=== PATIENT | female | born 1965 | race Caucasian/White ===

== ENCOUNTER 2023-12-31 20:56 | Observation (INO) ==
--- NOTE | 2023-12-31 21:20 | DR.EXTPAIN ---
HPI Time seen Time Seen by Provider: 12/31/23 21:20 PCP Primary Care Physician: ONEIL ISSA HPI Comment HPI Comment: According to pt she was well before at least 1 week ago.started with dysuria and vaginal itching .was noted to have vaginal candidiasis and acute cystitis .Given antibiotcis and diflucan.Furthermore pt noticed gradual increase in her blood sugar to be over 500.Pt called her FP to talk with her .She was noted to be drowsy . Was advised to come to ER .EMS called pateints blood sugar over 500 brought to Er for evaluation and management Complaint/Symptoms Chief Complaint Doctor Comments: feeling tired Chief Complaint:: PT IN ED VIA STRETCHER PER [facility] WITH C/O EXTREME WEAKNESS. PT STATES ON TUESDAY SHE STARTED URINATING BLOOD CLOTS AND HAVING FE BREEZY. SAW PRIMARY CARE ON TUESDAY DX WITH UTI AND STARTED ON ANTIBIOTICS. STATES TUESDAY SHE WAS VERY WEAK, FELL HIT HEAD AND LEFT SHOULDER. STATES TODAY SHE IS SO WEAK SHE CAN'T STAND. COVID-19 Coronavirus risk:travel/contact w/high risk person: No Has patient experienced Coronavirus symptoms: No Nurses notes reviewed Nurses Notes Review: Yes Source History Provided: Patient and EMS Mode of arrival Mode of Arrival: Stretcher Timing Onset of Chief Complaint: 12/29/23 Context History of: None Associated signs and symptoms Associated Signs and Symptoms: Nausea PMH PMH Past Medical History: Yes Past Medical History: Arthritis, Coronary Artery Disease, Depression, Diabetes, Dyslipidemia, GERD, Gout, Hypertension and Hypothyroidism Past Medical History Comment: NEUROPATHY Past Surgical History: Yes Surgical History: Abdominal Surgery, Angioplasty/Stents, Appendectomy, C- Section, Cholecystectomy and Hysterectomy Past Surgical History Comment: HERNIA REPAIR LYMPECTOMY Family History History of Family Medical Conditions: Yes Family Medical History: Diabetes Mellitus, Cancer, [place], Coronary Artery Disease, Heart Failure, Sudden Cardiac and Hypertension Social History Does patient currently use any type of tobacco product: No Have you used tobacco products in the last 12 months: No Type of Tobacco Use: None Does any household member use tobacco: No Alcohol Use: None Do you use any recreational Drugs:: No Lives With: Family Lives Where: Home Travel Risk Coronavirus risk:travel/contact w/high risk person: No Has patient experienced Coronavirus symptoms: No Infectious screening In the last 2 months have you had wt loss of >10#?: NO Have you had fever, night sweats or hemotysis?: No Have you traveled outside the country in the last 6 months?: No Isolation: Standard ROS Review of Systems Constitutional: Malaise and Fatigue Eyes: No Symptoms Reported ENTM: No Symptoms Reported Respiratoy: No Symptoms Reported Cardiovascular: Other (chest pressure ) Gastrointestinal/Abdominal: Nausea Genitourinary: Frequency and Other (polyuria and polydipsia ) Neurological: Weakness Musculoskeletal: No Symptoms Reported Integumentary: No Symptoms Reported Hematologic/Lymphatic: No Symptoms Reported Endocrine: No Symptoms Reported Psychiatric: No Symptoms Reported PE Vital Signs Vitals: Vital Signs Temperature 98.1 F Pulse Rate 99 Pulse Rate 100 Pulse Rate 100 Pulse Rate 102 Pulse Rate 106 Pulse Rate 105 Pulse Rate 106 Pulse Rate 110 Respiratory Rate 19 Respiratory Rate 19 Respiratory Rate 16 Respiratory Rate 21 Respiratory Rate 19 Respiratory Rate 14 Respiratory Rate 13 Respiratory Rate 20 Respiratory Rate 20 Blood Pressure 208/79 Blood Pressure 197/79 Blood Pressure 200/91 O2 Sat by Pulse Oximetry 98 O2 Sat by Pulse Oximetry 98 O2 Sat by Pulse Oximetry 97 O2 Sat by Pulse Oximetry 99 O2 Sat by Pulse Oximetry 97 O2 Sat by Pulse Oximetry 96 O2 Sat by Pulse Oximetry 97 General Limitations: No Limitations General Appearance: Lethargic Head Head Exam: Normal Inspection, Atraumatic and Normocephalic Eyes Eye exam: Normal Appearance, PERRL and EOMI ENT ENT Exam: Normal Exam and Mucous Membranes Dry Neck Neck Exam: Normal Inspection and Full ROM Chest Chest Inspection: Normal Inspection and Symmetric Chest Wall Rise Respiratory Respiratory Exam: Normal Lung Sounds Bilat Respiratory Exam: Bilateral: Clear to Auscultation Cardiovascular Cardiovascular Exam: Tachycardia, +S1 and +S2 Abdominal Exam Abdominal Exam: Normal Inspection, Normal Bowel Sounds and Soft Extremities Extremities Exam: Normal Inspection and Full ROM Upper Extremities Shoulder Exam: Normal Inspection and Full ROM Skin Skin Exam: Warm MDM Differential Diagnosis Differential Diagnosis: Other (hyperglycemia ,hx of DM type2,dehydration ,chest pressure ,nausea ) COURSE Treatment Treatment: labs ,IV fluids Reevaluation 1st: Improved ROR Labs Reviewed Laboratory Results Reviewed?: Yes 12/31/23 21:16 12/31/23 21:16 Laboratory: WBC 8.5 X10^3/uL (3.6-10.0) 12/31/23 21:16 RBC 5.99 X10^6/uL (3.5-5.4) H 12/31/23 21:16 Hgb 13.6 g/dL (12.0-16.0) 12/31/23 21:16 Hct 42.0 % (36.0-47.0) 12/31/23 21:16 MCV 70.2 fL (80.0-100.0) L 12/31/23 21:16 MCH 22.7 pg (27.0-34.0) L 12/31/23 21:16 MCHC 32.3 g/dL (33.0-35.0) L 12/31/23 21:16 RDW 17.5 % (11.6-16.5) H 12/31/23 21:16 Plt Count 275 X10^3/uL (150.0-450.0) 12/31/23 21:16 Plt Count Comment Adequate (ADEQUATE) 12/31/23 21:16 MPV 9.4 fL (7.4-11.0) 12/31/23 21:16 Neut % (Auto) 62.6 % (42.0-75.0) 12/31/23 21:16 Lymph % (Auto) 29.7 % (21.0-51.0) 12/31/23 21:16 [place] % (Auto) 5.9 % (0.0-13.0) 12/31/23 21:16 Eos % (Auto) 1.0 % (0.9-2.9) 12/31/23 21:16 Baso % (Auto) 0.8 % (0.2-1.0) 12/31/23 21:16 Neut # (Auto) 5.3 x10^3/uL (2.2-4.8) H 12/31/23 21:16 Lymph # (Auto) 2.5 X10^3/uL (1.3-2.9) 12/31/23 21:16 [place] # (Auto) 0.5 x10^3/uL (0.3-0.8) 12/31/23 21:16 Eos # (Auto) 0.1 x10^3/uL (0.0-0.2) 12/31/23 21:16 Baso # (Auto) 0.1 X10^3/uL (0.0-0.1) 12/31/23 21:16 Absolute Nucleated RBC 0.2 /100WBC 12/31/23 21:16 Plt Morphology Comment Normal (NORMAL) 12/31/23 21:16 RBC Morphology Abnormal (NORMAL) A 12/31/23 21:16 Hypochromasia 1+ A 12/31/23 21:16 Anisocytosis Slight A 12/31/23 21:16 Microcytosis Slight A 12/31/23 21:16 D-Dimer 0.69 ug/ml (0.0-0.57) H 12/31/23 21:16 Sodium 129 mmol/L (136-145) L 12/31/23 21:16 Corrected Sodium 138 mmol/L (136-145) 12/31/23 21:16 Potassium 4.2 mmol/L (3.5-5.1) 12/31/23 21:16 Chloride 95 mmol/L (98-107) L 12/31/23 21:16 Carbon Dioxide 22.1 mmol/L (21-32) 12/31/23 21:16 BUN 11 mg/dL (7-18) 12/31/23 21:16 Creatinine 1.06 mg/dL (0.55-1.02) H 12/31/23 21:16 Est GFR (MDRD) Af Amer > 60 (>60) 12/31/23 21:16 Est GFR (MDRD) Non-Af 57 (>60) L 12/31/23 21:16 Glucose 486 mg/dL (65-99) H 12/31/23 21:16 Lactic Acid 1.1 mmol/L (0.4-2.0) 12/31/23 21:16 Calcium 9.0 mg/dL (8.5-10.1) 12/31/23 21:16 Corrected Calcium 9.6 mg/dL (8.5-10.1) 12/31/23 21:16 Total Bilirubin 0.80 mg/dL (0.2-1.0) 12/31/23 21:16 AST 14 Units/L (15-37) L 12/31/23 21:16 ALT 26 Units/L (12-78) 12/31/23 21:16 Alkaline Phosphatase 166 Units/L (46-116) H 12/31/23 21:16 Creatine Kinase 55 Units/L (26-192) 12/31/23 21:16 Troponin I High Sens < 4.0 ng/L (4.0-60.0) L 12/31/23 21:16 Total Protein 7.4 g/dL (6.4-8.2) 12/31/23 21:16 Albumin 3.3 g/dL (3.4-5.0) L 12/31/23 21:16 Globulin 4.1 g/dL (2.5-4.5) 12/31/23 21:16 Albumin/Globulin Ratio 0.8 Ratio (1.1-2.1) L 12/31/23 21:16 Lipase 58 Units/L (16-77) 12/31/23 21:16 Specimen Type Clean catch urine 12/31/23 21:28 Urine Color Pale yellow (YELLOW) 12/31/23 21:28 Urine Appearance Clear (CLEAR) 12/31/23 21:28 Urine pH 5.0 (5.0 - 8.0) 12/31/23 21:28 Ur Specific [place] 1.015 (1.000-1.030) 12/31/23 21:28 Urine Protein Negative (NEGATIVE) 12/31/23 21:28 Urine Glucose (UA) 4+ (NEGATIVE) 12/31/23 21:28 Urine Ketones 3+ (NEGATIVE) 12/31/23 21:28 Urine Blood Negative (NEGATIVE) 12/31/23 21:28 Urine Nitrite Negative (NEGATIVE) 12/31/23 21:28 Urine Bilirubin Negative (NEGATIVE) 12/31/23 21:28 Urine Urobilinogen Normal (NORMAL) 12/31/23 21:28 Ur Leukocyte Esterase Negative (NEGATIVE) 12/31/23 21:28 Acetone, Semi-Quant Small (NEGATIVE) H 12/31/23 21:16 Opioid Opioid Risk Tool Age (Eber box if 16-45): No History of Preadolescent Sexual Abuse: No Total: 0 Total Score Risk Category: Low Risk Copyright: Darryl ROLAND predicting aberrant behaviors Discharge Plan Diagnosis Discharge Problem: Hyperglycemic crisis due to diabetes mellitus, Acute hyponatremia, Acute dehydration, Non-cardiac chest pain Discharge Plan Patient Disposition: 09 ADMITTED INPATIENT Condition: Stable Prescriptions: No Action glipizide 10 mg tablet 10 mg PO BID hydrocodone-acetaminophen 5-325 mg tablet 1 tab PO Q6H PRN tramadol 50 mg tablet 50 mg PO BID PRN nitrofurantoin monohyd/m-cryst 100 mg capsule 100 mg PO BID furosemide 40 mg tablet 60 mg PO QDAY carvedilol 25 mg tablet 25 mg PO BID gabapentin 600 mg tablet 600 mg PO QPM clopidogrel 75 mg tablet 75 mg PO QDAY pantoprazole 40 mg tablet,delayed release (DR/EC) 40 mg PO QDAY duloxetine 60 mg capsule,delayed release(DR/EC) 60 mg PO QPM ranolazine 500 mg tablet extended release 12 hr 500 mg PO BID Humulin 70/30 Insulin Pen 100 unit/mL (70-30) Insulin Pen 25 unit SUBCUT TID Levemir FlexTouch U100 Insulin 100 unit/mL (3 mL) Insulin Pen 30 unit SUBCUT BID Health Concerns: Post Hospitalization: new medications and changes needed to prevent readmission or further decline. Pt educated and given instructions on all concerns. Plan of Treatment: Continue with present treatment and follow up plan. Pt is to keep follow up appointment as instructed and take medications as ordered. Orders to Discharge Patient Discharge Orders: Transfer (Routine); Ordered 12/31/23 Ordered By: Ad Chu Follow ups/Referrals Follow ups/Referrals: Oneil Issa [Primary Care Provider] - 3 days Instructions Stand Alone Forms: Post Hospital Follow Up Care ADDITIONAL NOTES Additional Notes Additional Notes: hyperglycemia with small ketone in urine,dehydratuion ,hyponatremia . glucosuria cardiac enzymes neg .Urine neg for leucocytes and nitrites Spoke with Dr Clifton agree to have patient admitted
[2023-12-31] MEDS ORDERED: NS 1,000 ML IV 1,000 ML ONE ×2 (21:21→22:12)
[2023-12-31] MEDS: NS 1,000 ML IV 1,000 ML IV ONE ×2 (21:29→22:22)
[2023-12-31 21:43] LABS: BILIRUBIN,URINE NEGATIVE (NEGATIVE); BLOOD/HEMOGLOBIN,URINE NEGATIVE (NEGATIVE); GLUCOSE, URINE 4+ (NEGATIVE); KETONES,URINE 3+ (NEGATIVE); LEUKOCYTE ESTERASE ,URINE NEGATIVE (NEGATIVE); NITRITES,URINE NEGATIVE (NEGATIVE); PROTEIN,URINE NEGATIVE (NEGATIVE); UROBILINOGEN,URINE NORMAL (NORMAL)
[2023-12-31 21:43] LABS: BASOPHILS # (AUTO) 0.1 X10^3/uL (0.0-0.1); EOSINOPHILS # (AUTO) 0.1 x10^3/uL (0.0-0.2); LYMPHOCYTES # (AUTO) 2.5 X10^3/uL (1.3-2.9); MEAN CORPUSCULAR HEMOGLOBIN 22.7 pg (27.0-34.0); MONOCYTES # (AUTO) 0.5 x10^3/uL (0.3-0.8)
[2023-12-31 21:50] LABS: BASOPHILS % (AUTO) 0.8 % (0.2-1.0); HEMOGLOBIN 13.6 g/dL (12.0-16.0); LYMPHOCYTES % (AUTO) 29.7 % (21.0-51.0); MEAN CORPUSCULAR HGB CONC 32.3 g/dL (33.0-35.0); MEAN CORPUSCULAR VOLUME 70.2 fL (80.0-100.0); MEAN PLATELET VOLUME 9.4 fL (7.4-11.0); MONOCYTES % (AUTO) 5.9 % (0.0-13.0); NEUTROPHILS # (AUTO) 5.3 x10^3/uL (2.2-4.8); NEUTROPHILS % (AUTO) 62.6 % (42.0-75.0); PLATELET COUNT 275 X10^3/uL (150.0-450.0); RED BLOOD COUNT 5.99 X10^6/uL (3.5-5.4); RED CELL DISTRIBUTION WIDTH 17.5 % (11.6-16.5); WHITE BLOOD COUNT 8.5 X10^3/uL (3.6-10.0)
[2023-12-31 21:53] LABS: APPEARANCE,URINE CLEAR (CLEAR); COLOR,URINE PALE YELLOW (YELLOW)
[2023-12-31 21:53] LABS: ALANINE AMINOTRANSFERASE 26 Units/L (12-78); ALBUMIN 3.3 g/dL (3.4-5.0); ALKALINE PHOSPHATASE 166 Units/L (46-116); ASPARTATE AMINO TRANSFERASE 14 Units/L (15-37); BLOOD UREA NITROGEN 11 mg/dL (7-18); CARBON DIOXIDE 22.1 mmol/L (21-32); CHLORIDE 95 mmol/L (98-107); COR CA(FOR HYPOALB) 9.6 mg/dL (8.5-10.1); COR NA(FOR HYPERGLY) 138 mmol/L (136-145); CREATINE KINASE 55 Units/L (26-192); CREATININE 1.06 mg/dL (0.55-1.02); GLUCOSE 486 mg/dL (65-99); LIPASE 58 Units/L (16-77); POTASSIUM 4.2 mmol/L (3.5-5.1); SODIUM 129 mmol/L (136-145); TOTAL PROTEIN 7.4 g/dL (6.4-8.2); eGFR NON BLACK RACES 57 (>60)
[2023-12-31 21:54] LABS: ANISOCYTOSIS SLIGHT; HYPOCHROMASIA 1+; MICROCYTOSIS SLIGHT; PLATELET MORPHOLOGY COMMENT NORMAL (NORMAL)
[2023-12-31 21:55] LABS: SERUM ACETONE SMALL (NEGATIVE)
[2023-12-31] MEDS ORDERED: NovoLIN R (or HumuLIN R) ONE (21:57)
[2023-12-31] MEDS: NovoLIN R (or HumuLIN R) SUBCUT ONE (22:06)
[2023-12-31] MEDS ORDERED: TYLENOL 325 MG TAB PO ONE (22:06)
[2023-12-31] MEDS: TYLENOL 325 MG TAB PO ONE (22:12)
[2023-12-31] MEDS: COREG TAB 25 MG PO ONE (22:33)
--- NOTE | 2023-12-31 22:45 | EKG ---
Test Reason : syncopal episode Blood Pressure : */* mmHG Vent. Rate : 98 BPM Atrial Rate : 98 BPM P-R Int : 158 ms QRS Dur : 72 ms QT Int : 366 ms P-R-T Axes : 64 5 50 degrees QTc Int : 467 ms Normal sinus rhythm Low voltage QRS Possible Inferior infarct , age undetermined Abnormal ECG No previous ECGs available Confirmed by Misha Smith MD ([id number]) on 01/02/2024 7:52:41 AM Referred By: Confirmed By: Misha Smith MD
[2023-12-31] MEDS: RANEXA PO SCH (23:43)
[2023-12-31] MEDS ORDERED: NS 1,000 ML IV 1,000 ML IV SCH (23:45)
[2024-01-01 01:11] VITALS: BMI 42.7
[2024-01-01] MEDS: NovoLIN R (or HumuLIN R) SC PRN (05:51)
[2024-01-01 06:19] LABS: BASOPHILS # (AUTO) 0.1 X10^3/uL (0.0-0.1); BASOPHILS % (AUTO) 0.9 % (0.2-1.0); EOSINOPHILS # (AUTO) 0.1 x10^3/uL (0.0-0.2); EOSINOPHILS % (AUTO) 1.3 % (0.9-2.9); HEMOGLOBIN 12.2 g/dL (12.0-16.0); LYMPHOCYTES # (AUTO) 2.7 X10^3/uL (1.3-2.9); MEAN CORPUSCULAR HEMOGLOBIN 22.5 pg (27.0-34.0); MEAN CORPUSCULAR HGB CONC 32.1 g/dL (33.0-35.0); MEAN CORPUSCULAR VOLUME 70.2 fL (80.0-100.0); MEAN PLATELET VOLUME 9.1 fL (7.4-11.0); MONOCYTES # (AUTO) 0.5 x10^3/uL (0.3-0.8); MONOCYTES % (AUTO) 6.9 % (0.0-13.0); NEUTROPHILS # (AUTO) 3.8 x10^3/uL (2.2-4.8); NEUTROPHILS % (AUTO) 52.9 % (42.0-75.0); PLATELET COUNT 248 X10^3/uL (150.0-450.0); RED BLOOD COUNT 5.41 X10^6/uL (3.5-5.4); RED CELL DISTRIBUTION WIDTH 17.9 % (11.6-16.5); WHITE BLOOD COUNT 7.2 X10^3/uL (3.6-10.0)
[2024-01-01 06:21] LABS: ALANINE AMINOTRANSFERASE 21 Units/L (12-78); ALBUMIN 2.7 g/dL (3.4-5.0); ALKALINE PHOSPHATASE 150 Units/L (46-116); ASPARTATE AMINO TRANSFERASE 11 Units/L (15-37); BLOOD UREA NITROGEN 12 mg/dL (7-18); CALCIUM 8.4 mg/dL (8.5-10.1); CARBON DIOXIDE 21.1 mmol/L (21-32); CHLORIDE 102 mmol/L (98-107); COR CA(FOR HYPOALB) 9.4 mg/dL (8.5-10.1); COR NA(FOR HYPERGLY) 144 mmol/L (136-145); CREATININE 0.55 mg/dL (0.55-1.02); GLUCOSE 334 mg/dL (65-99); SODIUM 138 mmol/L (136-145); TOTAL PROTEIN 6.4 g/dL (6.4-8.2); eGFR NON BLACK RACES > 60 (>60)
[2024-01-01 07:00] LABS: ANISOCYTOSIS SLIGHT; HYPOCHROMASIA 1+; MICROCYTOSIS SLIGHT; PLATELET MORPHOLOGY COMMENT NORMAL (NORMAL)
[2024-01-01] MEDS ORDERED: CONSULT PHARMACY - POTASSIUM & MAGNESIUM XX SCH (08:00)
[2024-01-01] MEDS ORDERED: INSULIN SUBCUT SCH (09:00)
[2024-01-01] MEDS ORDERED: INSULIN DETEMIR U SUBCUT SCH (09:00)
[2024-01-01] MEDS: COREG TAB 25 MG PO SCH (09:31)
[2024-01-01] MEDS: MAG-OX TAB PO SCH (09:31)
[2024-01-01] MEDS: PLAVIX PO SCH (09:32)
[2024-01-01] MEDS: LEVEMIR SC SCH (09:43)
--- NOTE | 2024-01-01 10:18 | EKG ---
Test Reason : rhythm change Blood Pressure : */* mmHG Vent. Rate : 73 BPM Atrial Rate : 73 BPM P-R Int : 166 ms QRS Dur : 72 ms QT Int : 394 ms P-R-T Axes : 65 -14 47 degrees QTc Int : 434 ms Normal sinus rhythm Low voltage QRS Inferior infarct (cited on or before 31-DEC-2023) Cannot rule out Anterior infarct , age undetermined Abnormal ECG When compared with ECG of 31-DEC-2023 22:40, (Unconfirmed) Minimal criteria for Anterior infarct are now present Questionable change in initial forces of Inferior leads Confirmed by Misha Smith MD ([id number]) on 01/02/2024 7:49:37 AM Referred By: Confirmed By: Misha Smith MD
--- NOTE | 2024-01-01 10:42 | EKG ---
Test Reason : ABN EKG Blood Pressure : */* mmHG Vent. Rate : 68 BPM Atrial Rate : 68 BPM P-R Int : 146 ms QRS Dur : 80 ms QT Int : 408 ms P-R-T Axes : 41 -21 33 degrees QTc Int : 433 ms Normal sinus rhythm Low voltage QRS Inferior infarct (cited on or before 31-DEC-2023) Cannot rule out Anterior infarct (cited on or before 31-DEC-2023) Abnormal ECG When compared with ECG of 01-JAN-2024 10:06, (Unconfirmed) No significant change was found Confirmed by Misha Smith MD ([id number]) on 01/02/2024 7:49:10 AM Referred By: Confirmed By: Misha Smith MD
--- NOTE | 2024-01-01 14:38 | EKG ---
Test Reason : sob Blood Pressure : */* mmHG Vent. Rate : 75 BPM Atrial Rate : 75 BPM P-R Int : 158 ms QRS Dur : 80 ms QT Int : 396 ms P-R-T Axes : 64 -11 49 degrees QTc Int : 442 ms Normal sinus rhythm Low voltage QRS Inferior infarct (cited on or before 31-DEC-2023) Cannot rule out Anterior infarct (cited on or before 01-JAN-2024) Abnormal ECG When compared with ECG of 01-JAN-2024 10:27, (Unconfirmed) No significant change was found Confirmed by Msiha Smith MD ([id number]) on 01/02/2024 7:49:02 AM Referred By: Confirmed By: Misha Smith MD
--- NOTE | 2024-01-01 15:07 | DR.H&P ---
H&P History & Physical for Day of: H&P Date: 12/31/23 Chief Complaint Chief Complaint: WEAKNESS Allergies Allergies Allergy/AdvReac Type Severity Reaction Status Date / Time No Known Allergies Allergy Verified 12/31/23 21:20 History of Present Illness History of Present Illness: PT I S 58 WF, ER ADMISSION AFTER PRESENTING WITH CO WEAKNESS, WORSE OVER PAST 2-3 DAYS. PT HAD CO HEMATURIA, RESOLVED ON ADMISSION, WITH RECENT DX OF UTI THIS WEEK. PT HAS PMH OF CAD, STENT PLACEMENT X3 IN IN [place]. PT REPORTS CHEST PRESSURE AND SOB ON EXERTION. PT HAS UNCONTROLLED BS AND POOR PO HYDRATION. PT ADMITTED FOR EVALUATION AND TREATMENT OF ACUTE ILLNESS. Past Medical History Past Medical History: Arthritis, Coronary Artery Disease, Depression, Diabetes, Dyslipidemia, GERD, Gout, Hypertension and Hypothyroidism Past Surgical History Surgical History: Unknown Family History Family Medical History: Diabetes Mellitus, Cancer, Sudden Cardiac and Hypertension Social History Does patient currently use any type of tobacco product: No Have you used tobacco products in the last 12 months: No Type of Tobacco Use: None Does any household member use tobacco: No Alcohol Use: None Drug Use: None Medications Home Medications: Home Medications Medication Instructions Recorded Confirmed Type glipizide 10 mg tablet 10 mg PO BID 08/23/23 12/31/23 History carvedilol 25 mg tablet 25 mg PO BID 12/31/23 12/31/23 History clopidogrel 75 mg tablet 75 mg PO QDAY 12/31/23 12/31/23 History duloxetine 60 mg capsule,delayed 60 mg PO QPM 12/31/23 12/31/23 History release furosemide 40 mg tablet 60 mg PO QDAY 12/31/23 12/31/23 History gabapentin 600 mg tablet 600 mg PO QPM 12/31/23 12/31/23 History hydrocodone 5 mg-acetaminophen 325 1 tab PO Q6H PRN 12/31/23 12/31/23 History mg tablet insulin NPH-regular 70-30 U-100 25 unit subcut TID 12/31/23 12/31/23 History insulin 100 unit/mL subcutaneous pen insulin detemir U-100 100 unit/mL 30 unit subcut BID 12/31/23 12/31/23 History (3 mL) subcutaneous pen nitrofurantoin 100 mg PO BID 12/31/23 12/31/23 History monohydrate/macrocrystals 100 mg capsule pantoprazole 40 mg tablet,delayed 40 mg PO QDAY 12/31/23 12/31/23 History release ranolazine 500 mg tablet,extended 500 mg PO BID 12/31/23 12/31/23 History release,12 hr tramadol 50 mg tablet 50 mg PO BID PRN 12/31/23 12/31/23 History Labs 01/01/24 05:51 01/01/24 05:51 Labs: Laboratory WBC 7.2 X10^3/uL (3.6-10.0) 01/01/24 05:51 RBC 5.41 X10^6/uL (3.5-5.4) H 01/01/24 05:51 Hgb 12.2 g/dL (12.0-16.0) 01/01/24 05:51 Hct 38.0 % (36.0-47.0) 01/01/24 05:51 MCV 70.2 fL (80.0-100.0) L 01/01/24 05:51 MCH 22.5 pg (27.0-34.0) L 01/01/24 05:51 MCHC 32.1 g/dL (33.0-35.0) L 01/01/24 05:51 RDW 17.9 % (11.6-16.5) H 01/01/24 05:51 Plt Count 248 X10^3/uL (150.0-450.0) 01/01/24 05:51 Plt Count Comment Adequate (ADEQUATE) 01/01/24 05:51 MPV 9.1 fL (7.4-11.0) 01/01/24 05:51 Neut % (Auto) 52.9 % (42.0-75.0) 01/01/24 05:51 Lymph % (Auto) 38.0 % (21.0-51.0) 01/01/24 05:51 [place] % (Auto) 6.9 % (0.0-13.0) 01/01/24 05:51 Eos % (Auto) 1.3 % (0.9-2.9) 01/01/24 05:51 Baso % (Auto) 0.9 % (0.2-1.0) 01/01/24 05:51 Neut # (Auto) 3.8 x10^3/uL (2.2-4.8) 01/01/24 05:51 Lymph # (Auto) 2.7 X10^3/uL (1.3-2.9) 01/01/24 05:51 [place] # (Auto) 0.5 x10^3/uL (0.3-0.8) 01/01/24 05:51 Eos # (Auto) 0.1 x10^3/uL (0.0-0.2) 01/01/24 05:51 Baso # (Auto) 0.1 X10^3/uL (0.0-0.1) 01/01/24 05:51 Absolute Nucleated RBC 0.1 /100WBC 01/01/24 05:51 Plt Morphology Comment Normal (NORMAL) 01/01/24 05:51 RBC Morphology Abnormal (NORMAL) A 01/01/24 05:51 Hypochromasia 1+ A 01/01/24 05:51 Anisocytosis Slight A 01/01/24 05:51 Microcytosis Slight A 01/01/24 05:51 D-Dimer 0.69 ug/ml (0.0-0.57) H 12/31/23 21:16 Sodium 138 mmol/L (136-145) 01/01/24 05:51 Corrected Sodium 144 mmol/L (136-145) 01/01/24 05:51 Potassium 4.0 mmol/L (3.5-5.1) 01/01/24 05:51 Chloride 102 mmol/L (98-107) 01/01/24 05:51 Carbon Dioxide 21.1 mmol/L (21-32) 01/01/24 05:51 BUN 12 mg/dL (7-18) 01/01/24 05:51 Creatinine 0.55 mg/dL (0.55-1.02) 01/01/24 05:51 Est GFR (MDRD) Af Amer > 60 (>60) 01/01/24 05:51 Est GFR (MDRD) Non-Af > 60 (>60) 01/01/24 05:51 Glucose 334 mg/dL (65-99) H 01/01/24 05:51 POC Glucose (mg/dL) 318 mg/dL (65-99) H 01/01/24 11:13 Lactic Acid 1.1 mmol/L (0.4-2.0) 12/31/23 21:16 Calcium 8.4 mg/dL (8.5-10.1) L 01/01/24 05:51 Corrected Calcium 9.4 mg/dL (8.5-10.1) 01/01/24 05:51 Magnesium 1.6 mg/dL (2.0-2.9) L 01/01/24 05:57 Total Bilirubin 0.50 mg/dL (0.2-1.0) 01/01/24 05:51 AST 11 Units/L (15-37) L 01/01/24 05:51 ALT 21 Units/L (12-78) 01/01/24 05:51 Alkaline Phosphatase 150 Units/L (46-116) H 01/01/24 05:51 Creatine Kinase 55 Units/L (26-192) 12/31/23 21:16 Troponin I High Sens 5.3 ng/L (4.0-60.0) 01/01/24 11:00 Total Protein 6.4 g/dL (6.4-8.2) 01/01/24 05:51 Albumin 2.7 g/dL (3.4-5.0) L 01/01/24 05:51 Globulin 3.7 g/dL (2.5-4.5) 01/01/24 05:51 Albumin/Globulin Ratio 0.7 Ratio (1.1-2.1) L 01/01/24 05:51 Lipase 58 Units/L (16-77) 12/31/23 21:16 Specimen Type Clean catch urine 12/31/23 21: Urine Color Pale yellow (YELLOW) 12/31/23 21:28 Urine Appearance Clear (CLEAR) 12/31/23 21:28 Urine pH 5.0 (5.0 - 8.0) 12/31/23 21:28 Ur Specific [place] 1.015 (1.000-1.030) 12/31/23 21:28 Urine Protein Negative (NEGATIVE) 12/31/23 21: Urine Glucose (UA) 4+ (NEGATIVE) 12/31/23 21:28 Urine Ketones 3+ (NEGATIVE) 12/31/23 21: Urine Blood Negative (NEGATIVE) 12/31/23 21: Urine Nitrite Negative (NEGATIVE) 12/31/23 21:28 Urine Bilirubin Negative (NEGATIVE) 12/31/23 21:28 Urine Urobilinogen Normal (NORMAL) 12/31/23 21:28 Ur Leukocyte Esterase Negative (NEGATIVE) 12/31/23 21:28 Acetone, Semi-Quant Small (NEGATIVE) H 12/31/23 21:16 Review of Systems Constitutional: Weakness and Malaise Eyes: No Symptoms Reported ENT: No Symptoms Reported Respiratory: Shortness of Breath and SOB with Excertion Cardiovascular: Other ("A LITTLE CHEST PRESSURE") Gastrointestinal: Abdominal Pain Genitourinary: Hematuria Musculoskeletal: No Symptoms Reported Skin: No Symptoms Reported Neurological: Weakness Physical Exam Vital Signs: Vital Signs Temperature 97.8 F Temperature 98.3 F Pulse Rate [Left Radial] 65 Pulse Rate [Left Radial] 74 Respiratory Rate 18 Respiratory Rate 18 Blood Pressure [Left Arm] 137/67 Blood Pressure [Left Arm] 119/58 O2 Sat by Pulse Oximetry 97 O2 Sat by Pulse Oximetry 97 Oriented: Normal Eyes: Normal Ear: Normal Nose: Normal Throat: Dry Respiratory: RLL Diminished and LLL Diminished Cardiovascular: Normal and Edema; negative Tachycardia Auscultation: Bowel Sounds: Normal Tenderness: Normal Skin: Normal Musculoskeletal: Normal Psychiatric: Anxiety Mood Description: Anxious Affect: Anxious Speech Pattern: Clear and Appropriate Assessment/Plan (1) Hyperglycemic crisis due to diabetes mellitus: Narrative Support Text: ADMIT, GENTLE IV HYDRATION CXR, URINE CULTURE BP CONTROL, VERIFY AND RESUME HOME MEDICATIONS CARDIAC MONITORING BS CONTROL Status: Acute (2) Acute hyponatremia: Status: Acute (3) Acute dehydration: Status: Acute (4) CAD (coronary artery disease): Status: None (5) Depression: Status: None (6) Neuropathy: Status: None
[2024-01-01 15:17] LABS: AMYLASE 29 Units/L (25-115); LIPASE 55 Units/L (16-77)
[2024-01-01] MEDS ORDERED: RESTORIL CAP 15 MG PO SCH (15:45)
[2024-01-01] MEDS ORDERED: RESTORIL CAP 15 MG PO PRN (16:09)
[2024-01-01] MEDS: MORPHINE SULFATE INJ 2 MG INJ IVP PRN (16:31)
--- NOTE | 2024-01-01 18:18 | EKG ---
Test Reason : sob Blood Pressure : */* mmHG Vent. Rate : 68 BPM Atrial Rate : 68 BPM P-R Int : 142 ms QRS Dur : 80 ms QT Int : 398 ms P-R-T Axes : 41 -15 36 degrees QTc Int : 423 ms Normal sinus rhythm Low voltage QRS Inferior infarct (cited on or before 31-DEC-2023) Cannot rule out Anterior infarct (cited on or before 01-JAN-2024) Abnormal ECG When compared with ECG of 01-JAN-2024 14:23, (Unconfirmed) No significant change was found Confirmed by Misha Smith MD ([id number]) on 01/02/2024 7:47:12 AM Referred By: Confirmed By: Misha Smith MD
[2024-01-01] MEDS ORDERED: SNACK - Diabetic Appropriate PO SCH (20:00)
[2024-01-01 20:49] VITALS: BP 136/63; PULSE 84; RESP 20; TEMP 98.2; O2SAT 98
[2024-01-01] MEDS ORDERED: CYMBALTA PO SCH (21:00)
--- NOTE | 2024-01-01 22:12 | RAD ---
EXAM: CHEST, 1 VIEW HISTORY: weakness abnormal CE hyperglycemia dehydration hyponatrmia; COMPARISON: None available. FINDINGS: The trachea is midline. The cardiac silhouette is unremarkable . The lungs are clear without focal infiltrate or effusion. The bony thorax is unremarkable. IMPRESSION: No acute cardiopulmonary disease. THIS IS AN ELECTRONICALLY VERIFIED FINAL REPORT 01/01/2024 10:09 PM - Electronically signed by Phil Nelson MD
== END 2024-01-01 20:20 | disposition home or self-care (01) ==
LOC: MED/SURG 20:56 → ER 20:56 → MED/SURG 23:25
PROVIDERS: ADMIT Internal Medicine; ATTEND Internal Medicine
DX: R94.31 Abnormal electrocardiogram [ECG] [EKG]; R06.02 Shortness of breath; E87.1 Hypo-osmolality and hyponatremia; E66.01 Morbid (severe) obesity due to excess calories; E78.5 Hyperlipidemia, unspecified; I25.10 Atherosclerotic heart disease of native coronary artery without angina pectoris; I10 Essential (primary) hypertension; E86.0 Dehydration; E83.42 Hypomagnesemia; R53.1 Weakness; Z68.41 Body mass index [BMI] 40.0-44.9, adult; R07.89 Other chest pain; E03.8 Other specified hypothyroidism; E11.65 Type 2 diabetes mellitus with hyperglycemia; F32.89 Other specified depressive episodes; R79.1 Abnormal coagulation profile